=== PATIENT | male | born 1980 | race Caucasian/White ===

== ENCOUNTER 2022-12-23 07:03 | Outpatient (CLI) | payer BC, SELFPAY ==
--- NOTE | ~2022-12-23 | CT_ITS ---
CT ANGIOGRAM NECK AND HEAD History: Headache. Technique: Axial noncontrast imaging of the brain was performed. Serial spiral axial images through t he head were then obtained during arterial phase IV injection of 100 cc of Omnipaque 350. 3-D postpro cessing and MIP images were then reconstructed on the remote workstation. Dose reduction technique wa s used on this scan by utilizing automated exposure control and iterative reconstruction technique. [facility] dose-length product (DLP) was 1286.37 mGy-cm. Findings: Axial noncontrast imaging of the brain is unremarkable. No acute infarct, intracranial hemo rrhage, or mass lesion identified. Ventricles and subarachnoid spaces are unremarkable. Brody-white di fferentiation is preserved. Paranasal sinuses and mastoid air cells are clear. Distal vertebral arteries, basilar artery, and posterior cerebral arteries are patent. Distal interna l carotid arteries, middle cerebral arteries, and anterior cerebral arteries are patent. No large ves yves occlusion. No stenosis or aneurysm. Impression: Unremarkable exam. Reviewed, dictated and finalized at location . Impression: Unremarkable exam.
== END 2022-12-23 07:04 | disposition home or self-care (01) ==
PROVIDERS: PCP Emergency Medicine; Visit Provider Otolaryngology
DX: H69.91 Unspecified Eustachian tube disorder, right ear (principal); H90.71 Mixed conductive and sensorineural hearing loss, unilateral, right ear, with unrestricted hearing on the contralateral side; H93.A1 Pulsatile tinnitus, right ear; R51.9 Headache, unspecified
CPT/HCPCS: 70496; Q9967

== ENCOUNTER 2023-02-17 12:55 | Outpatient (CLI) | payer BC, SELFPAY | END 2023-02-17 12:56 | disposition home or self-care (01) | LOC: ANHAUDASC 12:56 | PROVIDERS: PCP Emergency Medicine; Visit Provider Otolaryngology | DX: J30.2 Other seasonal allergic rhinitis (principal); H81.10 Benign paroxysmal vertigo, unspecified ear; H90.71 Mixed conductive and sensorineural hearing loss, unilateral, right ear, with unrestricted hearing on the contralateral side; H69.91 Unspecified Eustachian tube disorder, right ear; H93.A1 Pulsatile tinnitus, right ear; R51.9 Headache, unspecified; H90.42 Sensorineural hearing loss, unilateral, left ear, with unrestricted hearing on the contralateral side | CPT/HCPCS: 92557; 92567 ==